=== PATIENT | female | born 2000 ===

== ENCOUNTER → 2023-05-31 07:06 | Outpatient (CLI) | payer BC, OTHER, SELFPAY ==
--- NOTE | ~2023-05-31 | MR_ITS ---
MRI of the left knee Clinical history: Pain Technique: Coronal proton density and proton density-weighted images, sagittal proton-density and T2 fat-sat images, and axial proton-density fat-saturated images were acquired. Findings: Anterior and posterior cruciate ligaments are intact. Medial collateral ligament and the la teral collateral ligament complex are intact. Popliteus tendon is intact. Medial and lateral menisci are intact, without evidence of tear. Articular cartilage is well preserved throughout the knee. There is bone marrow edema at the medial f emoral condyle and medial to central aspect of the proximal tibia, consistent with bone contusions. N o fracture identified. Extensor mechanism is intact. Small joint effusion is present. No Schuster's cyst. Impression: Marrow edema at the medial femoral condyle and medial to central aspect of the proximal tibia is cons istent with bone contusions. This pattern of contusions is consistent with history of hyperextension injury. No ligamentous injury or meniscal tear identified. Reviewed, dictated and finalized at location . Impression: Marrow edema at the medial femoral condyle and medial to central aspect of the proximal tibia is consistent with bone contusions. This pattern of contusions i s consistent with history of hyperextension injury. No ligamentous injury or meniscal tear identified.
== END ==
PROVIDERS: PCP Orthopaedic Surgery; Visit Provider Orthopaedic Surgery
DX: M25.562 Pain in left knee (principal)
CPT/HCPCS: 73721